=== PATIENT | female | born 1995 ===

== ENCOUNTER → 2021-11-16 10:54 | Outpatient (CLI) | payer OTHER, SELFPAY ==
--- NOTE | ~2021-11-16 | US_ITS ---
EXAMINATION: US OB /maternal detail EXAM DATE: 11/16/2021 11:33 INDICATION: Anatomy . 2nd trimester. TECHNIQUE: Pelvic obstetrical transabdominal sonogram was performed by a technologist. There are mu ltiple grayscale and Doppler images available for interpretation. There are no earlier studies of is gestation for comparison. FINDINGS: There is a single fetus identified in vertex presentation with a heart rate of 143 beats pe r minute. The placenta is located in the anterior position. Placental margin to internal cervical os distance is 2.7 cm. There is no sonographic evidence of retroplacental hemorrhage identified. There i s subjectively expected amount of amniotic fluid. BIOMETRIC DATA: Biparietal diameter (BPD): 4.8 cm ----------------> 20 weeks 3 days. Head circumference (HC): 18.1 cm ----------------> 20 weeks 4 days. Abdominal circumference (AC): 15.9 cm ----------> 21 weeks 0 days. Femur length (FL): 3.4 cm --------------------------> 20 weeks 6 days. These measurements are concordant. HC/AC ratio is 1.14 (The 5th -- 95th percentile range is 1.06-1.25. Estimated weight is 384 g +/- 58 g. This is the 71st percentile when the currently reported cl inical gestation age 20 weeks 3 days, clinical estimated date of delivery ([facility]) 04/02 is used. Fet al estimated gestational age based on measurements from this exam is 20 weeks 5 days, with an estimat ed date of delivery ([facility]-AUA) 03/31. ANATOMIC SURVEY: The following anatomy is identified and is sonographically normal in appearance: Cerebral ventricles Cavum septum pellucidum Cerebellum Cisterna magna Nuchal fold CTL-spine Four-chamber heart Cardiac outflow tracts Diaphragm Stomach Kidneys Bladder Three-vessel cord Cord insertion Extremities Nose/lips IMPRESSION: 1. Single fetus in vertex presentation with heart rate 143 beats per minute. 2. Estimated weight of 384 grams, 71st percentile using the currently reported clinical gestat ion age of 20 weeks 3 days, [facility](OPE) 04/02. 3. Normal anatomic survey. Reviewed, dictated and finalized at location A. WELDER IMPRESSION: 1. Single fetus in vertex presentation with heart rate 143 beats per minute. 2. Estimated weight of 384 grams, 71st percentile using the currently re ported clinical gestation age of 20 weeks 3 days, [facility](OPE) 04/02. 3. Normal anatomic survey.
== END ==
PROVIDERS: Visit Provider Obstetrics & Gynecology
DX: Z36.9 Encounter for antenatal screening, unspecified (principal); Z3A.20 20 weeks gestation of pregnancy
CPT/HCPCS: 76805